=== PATIENT | female | born 1960 | race Caucasian/White ===

== ENCOUNTER 2017-10-22 11:01 | Emergency (ER) | payer MEDICARE, OTHER ==
--- NOTE | 2017-10-22 11:37 | ER Document Report ---
ED Medical Screen (RME) - General Chief Complaint: Congestion Stated Complaint: COUGH CONGESTION Time Seen by Provider: 10/22/17 11:33 Notes: The patient is a 57-year-old female, former smoker (quit 5 years ago), depression, presents with increased cough and congestion over the past 2 days. She is now having some upper chest tightness that is worsening. She denies hemoptysis, fevers, back pain, leg swelling, nausea or vomiting. PE: 91% on RA (not on any home O2, never diagnosed with COPD), mild tachypnea, lungs are clear to auscultation bilaterally. I have greeted and performed a rapid initial assessment of this patient. A comprehensive ED assessment and evaluation of the patient, analysis of test results and completion of the medical decision making process will be conducted by additional ED providers. TRAVEL OUTSIDE OF THE [place] IN LAST 30 DAYS: No - Related Data Allergies/Adverse Reactions: No Known Allergies Allergy (Verified 10/22/17 11:22) Past Medical History - Social History Chew tobacco use (# tins/day): No Frequency of alcohol use: Rare Drug Abuse: None Renal/ Medical History: Denies: Hx Peritoneal Dialysis Psychiatric Medical History: Reports: Hx Depression Past Surgical History: Reports: Hx Orthopedic Surgery - right foot Physical Exam - Vital signs Vitals: Temp Pulse Resp BP Pulse Ox 97.8 F 87 22 H 142/99 H 91 L 10/22/17 11:08 10/22/17 11:08 10/22/17 11:08 10/22/17 11:08 10/22/17 11:08 Course - Vital Signs Vital signs: Temp Pulse Resp BP Pulse Ox 97.8 F 78 22 H 142/99 H 95 10/22/17 11:08 10/22/17 11:30 10/22/17 11:08 10/22/17 11:08 10/22/17 11:30
[2017-10-22 12:04] LABS: ABSOLUTE BASOPHILS # (AUTO) 0.1 10^3/uL (0.0-0.2); ABSOLUTE EOSINOPHILS # (AUTO) 0.7 10^3/uL (0.0-0.6); ABSOLUTE LYMPHOCYTES (AUTO) 2.9 10^3/uL (0.5-4.7); ABSOLUTE MONOCYTES (AUTO) 0.8 10^3/uL (0.1-1.4); ABSOLUTE NEUT (AUTO) 3.8 10^3/uL (1.7-8.2); BASOPHILS % (AUTO) 1.1 % (0-2); EOSINOPHILS % (AUTO) 8.8 % (0-6); HEMOGLOBIN 15.5 g/dL (12.0-15.5); MEAN CORPUSCULAR HEMOGLOBIN 31.1 pg (27.0-33.4); MEAN CORPUSCULAR HGB CONC 34.4 g/dL (32.0-36.0); MEAN CORPUSCULAR VOLUME 90 fl (80-97); MONOCYTES % (AUTO) 9.4 % (3-13); PLATELET COUNT 330 10^3/uL (150-450); RED BLOOD COUNT 4.98 10^6/uL (3.72-5.28); RED CELL DISTRIBUTION WIDTH 12.7 % (11.5-14.0); SEGMENTED NEUTROPHILS % (AUTO) 45.7 % (42-78); TOTAL CELLS COUNTED % (AUTO) 100 %; WHITE BLOOD COUNT 8.4 10^3/uL (4.0-10.5)
--- NOTE | 2017-10-22 12:10 | ER Document Report ---
ED General - General Chief Complaint: Congestion Stated Complaint: COUGH CONGESTION Time Seen by Provider: 10/22/17 11:33 TRAVEL OUTSIDE OF THE [place] IN LAST 30 DAYS: No - HPI Patient complains to provider of: SOB Notes: 57-year-old female lengthy history of smoking quit several years ago presents with 2 day history increasing work of breathing and shortness of breath. Patient endorses increased sputum production. Denies fever chills. Patient says today she started to notice increasing constant chest tightness with deep inspiration. Denies any overt pain with this chest discomfort. Denies diaphoresis nausea, vomiting, diarrhea, dysuria. Patient does not carry the diagnosis of COPD, does not wear chronic oxygen. Initial oxygen saturations 91 % room air. - Related Data Allergies/Adverse Reactions: No Known Allergies Allergy (Verified 10/22/17 11:22) Past Medical History - Social History Smoking Status: Former Smoker Chew tobacco use (# tins/day): No Frequency of alcohol use: Rare Drug Abuse: None Family History: None Patient has suicidal ideation: No Patient has homicidal ideation: No Renal/ Medical History: Denies: Hx Peritoneal Dialysis Psychiatric Medical History: Reports: Hx Depression Past Surgical History: Reports: Hx Orthopedic Surgery - right foot Review of Systems - Review of Systems Notes: REVIEW OF SYSTEMS: CONSTITUTIONAL: -fevers, -chills EENT: -eye pain, -difficulty swallowing, -nasal congestion CARDIOVASCULAR: +chest tightness, -syncope. RESPIRATORY: -cough, + SOB GASTROINTESTINAL: -abdominal pain, -nausea, -vomiting, -diarrhea GENITOURINARY: -dysuria, -hematuria MUSCULOSKELETAL: -back pain, -neck pain SKIN: -rash or skin lesions. HEMATOLOGIC: -easy bruising or bleeding. LYMPHATIC: -swollen, enlarged glands. NEUROLOGICAL: -altered mental status or loss of consciousness, -headache, - neurologic symptoms PSYCHIATRIC: -anxiety, -depression. ALL OTHER SYSTEMS REVIEWED AND NEGATIVE. Physical Exam - Vital signs Vitals: Temp Pulse Resp BP Pulse Ox 97.8 F 87 22 H 142/99 H 91 L 10/22/17 11:08 10/22/17 11:08 10/22/17 11:08 10/22/17 11:08 10/22/17 11:08 - Notes Notes: PHYSICAL EXAMINATION: GENERAL: Well-appearing, well-nourished and in no acute distress. HEAD: Atraumatic, normocephalic. EYES: Pupils equal round and reactive to light, extraocular movements intact, sclera anicteric, conjunctiva are normal. ENT: nares patent, oropharynx clear without exudates. Moist mucous membranes. NECK: Normal range of motion, supple without lymphadenopathy LUNGS: Diffuse rhonchi, no wheezing HEART: Regular rate and rhythm without murmurs ABDOMEN: Soft, nontender, normoactive bowel sounds. No guarding, no rebound. No masses appreciated. EXTREMITIES: Normal range of motion, no pitting or edema. No cyanosis. NEUROLOGICAL: Cranial nerves grossly intact. Normal speech, normal gait. Normal sensory and motor exams. PSYCH: Normal mood, normal affect. SKIN: Warm, Dry, normal turgor, no rashes or lesions noted. Course - Re-evaluation Re-evalutation: 10/22/17 12:18 57-year-old female presents with increased work of breathing, no chest pain no pleuritic component negative hemoptysis or trauma or travel. No history of DVT. Patient has never had a diagnosis of COPD but appears to be a COPD exacerbation. Will evaluate cardiac evaluation. EKG unremarkable at this time. 10/22/17 14:23 Patient's extensive lab workup relatively unremarkable, CAT scan performed shows no focal infiltrate or pulmonary embolus. Patient given multiple breathing treatments and steroids in the emergency department, preserved kidney function also noted. Patient be discharged home with prescription for oral doxycycline and short burst dose of steroids. Follow -up with PCP. return precautions given - Vital Signs Vital signs: Temp Pulse Resp BP Pulse Ox 97.8 F 78 22 H 142/99 H 95 10/22/17 11:08 10/22/17 11:30 10/22/17 11:08 10/22/17 11:08 10/22/17 11:30 - Laboratory Result Diagrams: 10/22/17 11:47 10/22/17 11:47 Laboratory results interpreted by me: 10/22/17 10/22/17 10/22/17 11:47 11:47 11:47 Eosinophils % 8.8 H Absolute Eosinophils 0.7 H D-Dimer 0.61 H Sodium 146.1 H Calcium 10.3 H Total Protein 8.5 H - Diagnostic Test Radiology reviewed: Reports reviewed - EKG Interpretation by Me [place]/QRS: LBBB Additional EKG results interpreted by me: 10/22/17 14:24 Normal sinus rhythm, no ST elevations or depressions, no pathologic T-wave inversions Discharge - Discharge Clinical Impression: Viral syndrome Condition: Stable Disposition: HOME, SELF-CARE Instructions: Viral Syndrome ([facility]) Additional Instructions: See your PCP this week
--- NOTE | 2017-10-22 12:11 | RADIOLOGY REPORT (SQ) ---
EXAM DESCRIPTION: CHEST 2 VIEWS COMPLETED DATE/TIME: 10/22/2017 11:58 am REASON FOR STUDY: cough, hypoxia COMPARISON: None. EXAM PARAMETERS: NUMBER OF VIEWS: two views TECHNIQUE: Digital Frontal and Lateral radiographic views of the chest acquired. RADIATION DOSE: NA LIMITATIONS: none FINDINGS: LUNGS AND PLEURA: No opacities, masses or pneumothorax. No pleural effusion. MEDIASTINUM AND HILAR STRUCTURES: No masses or contour abnormalities. HEART AND VASCULAR STRUCTURES: Heart normal size. No evidence for failure. BONES: No acute findings. HARDWARE: None in the chest. OTHER: No other significant finding. IMPRESSION: NO ACUTE RADIOGRAPHIC FINDING IN THE CHEST. TECHNICAL DOCUMENTATION: JOB ID: [id number] [employer]- All Rights Reserved Reading location - IP/workstation name: [email or web address]
[2017-10-22] MEDS ORDERED: IPRATROPIUM/ALBUTEROL 0.5-2.5 MG/3 ML AMPUL NEB ONE ×3 (12:15)
[2017-10-22] MEDS ORDERED: PREDNISONE 20 MG TABLET PO ONE (12:15)
[2017-10-22 12:30] LABS: ALANINE AMINOTRANSFERASE 25 U/L (9-52); ALBUMIN 4.7 g/dL (3.5-5.0); ALKALINE PHOSPHATASE 73 U/L (38-126); ANION GAP 13 (5-19); ASPARTATE AMINO TRANSFERASE 26 U/L (14-36); BILIRUBIN,DIRECT 0.3 mg/dL (0.0-0.4); BILIRUBIN,TOTAL 0.6 mg/dL (0.2-1.3); BLOOD UREA NITROGEN 14 mg/dL (7-20); CALCIUM 10.3 mg/dL (8.4-10.2); CARBON DIOXIDE 30 mmol/L (22-30); CHLORIDE 103 mmol/L (98-107); CREATINE KINASE 70 U/L (30-135); GLUCOSE 96 mg/dL (75-110); POTASSIUM 4.2 mmol/L (3.6-5.0); SODIUM 146.1 mmol/L (137-145); TOTAL PROTEIN 8.5 g/dL (6.3-8.2)
--- NOTE | 2017-10-22 14:01 | RADIOLOGY REPORT (SQ) ---
EXAM DESCRIPTION: CTA CHEST COMPLETED DATE/TIME: 10/22/2017 1:44 pm REASON FOR STUDY: elevated d-dimer chest pain, shortness of breath COMPARISON: Two-view chest earlier today TECHNIQUE: CT scan of the chest performed using helical scanning technique with dynamic intravenous contrast injection. Images reviewed with lung, soft tissue and bone windows. Reconstructed coronal and sagittal MPR images reviewed. Additional 3 dimensional post-processing performed to develop Maximal Intensity Projection images (MO P). All images stored on PACS. All CT scanners at this facility use dose modulation, iterative reconstruction, and/or weight based d osing when appropriate to reduce radiation dose to as low as reasonably achievable (ALARA). [facility]: Dose Right [facility]: CareDose [facility]: Dose Right [facility]: Teradose 4D [facility]: [employer] CONTRAST TYPE AND DOSE: contrast/concentration: Isovue 370.00 mg/ml; Total Contrast Delivered: 65.0 ml; Total Saline Delivered: 90.0 ml Contrast bolus optimized for the pulmonary arteries. Bolus is diagnostic for the aorta. RENAL FUNCTION: Creatinine 0.82 RADIATION DOSE: CT Rad equipment meets quality standard of care and radiation dose reduction techniq ues were employed. CTDIvol: 14.3 - 19.8 mGy. DLP: 567 mGy-cm. . LIMITATIONS: None. FINDINGS: LUNGS AND PLEURA: No masses, infiltrates, or pneumothorax. No pleural effusions or pleura l calcifications. Mild changes of obstructive lung disease with enlarged airspaces in the upper lobe s bilaterally. AORTA AND GREAT VESSELS: No aneurysm. Contrast bolus not optimized for the aorta. HEART: No pericardial effusion. No significant coronary artery calcifications. PULMONARY ARTERIES: No emboli visualized in the main pulmonary arteries or the segmental branches. HILAR AND MEDIASTINAL STRUCTURES: No identified masses or abnormal nodes. HARDWARE: None in the chest. UPPER ABDOMEN: No significant findings. Limited exam. THYROID AND OTHER SOFT TISSUES: No masses. No adenopathy. BONES: No acute or significant finding. 3D MIPS: Confirm above findings. OTHER: No other significant finding. IMPRESSION: No acute findings. No acute infiltrates. No pulmonary emboli or thoracic aortic dissec tion. COMMENT: Quality ID # [id number]: Final reports with documentation of one or more dose reduction techniques (e.g., Automated exposure control, adjustment of the mA and/or kV according to patient size, use of iterative reconstruction technique) TECHNICAL DOCUMENTATION: JOB ID: [id number] [employer]- All Rights Reserved Reading location - IP/workstation name: [email or web address]
[2017-10-22 14:34] VITALS: BP 124/80
--- NOTE | 2017-10-22 21:48 | EKG REPORT ---
SEVERITY:- NORMAL ECG - SINUS RHYTHM : Confirmed by: Destiny Sousa MD 22-Oct-2017 21:46:26
== END 2017-10-22 15:06 | disposition home or self-care (01) ==
LOC: ER 11:01
DX: B34.9 Viral infection, unspecified (principal); R09.89 Other specified symptoms and signs involving the circulatory and respiratory systems; R06.02 Shortness of breath; Z87.891 Personal history of nicotine dependence
CPT/HCPCS: 93005; 94640 ×2; 99284; 36415; 82550; 85025; 80053; 84484; 85379; 71046; 71275; 93010; A9270 ×2; J7512; J7620

== ENCOUNTER 2018-04-05 18:58 | Emergency (ER) | payer MEDICARE ==
[2018-04-05] MEDS ORDERED: DIPHENHYDRAMINE HCL 25 MG CAPSULE PO ONE (20:27)
[2018-04-05] MEDS ORDERED: PREDNISONE 20 MG TABLET PO ONE (20:27)
[2018-04-05] MEDS ORDERED: IPRATROPIUM/ALBUTEROL 0.5-2.5 MG/3 ML AMPUL NEB ONE (20:27)
--- NOTE | 2018-04-05 21:44 | RADIOLOGY REPORT (SQ) ---
EXAM DESCRIPTION: PA and lateral views of the chest CLINICAL HISTORY:57 years Female, cough, fever Comparison: None FINDINGS: No focal lung consolidation. No pleural effusion. No pneumothorax. Cardiac and mediastinal silhouette is unremarkable. No acute osseous abnormality. Soft tissues are unremarkable. IMPRESSION: No acute findings. No focal lung consolidation.
[2018-04-05] MEDS ORDERED: ALBUTEROL SULFATE HFA (90 MCG/PUFF) 8 GM MDI (1 MDI/ER DISP) IH ONE (22:38)
--- NOTE | 2018-04-05 22:41 | ER Document Report ---
HPI - HPI Time Seen by Provider: 04/05/18 20:00 Pain Level: 4 Notes: Patient is a 57-year-old female who presents to the emergency department with possible allergy symptoms. Patient reports that he drove here today from [place] and are staying with her daughter who has a dog in the home. Patient reports the last time she visited her daughter she had a similar illness that started just after arrival. Patient reports productive cough, nasal congestion, sore throat and redness around her eyes. Patient is also requesting a refill of her Zoloft as she states that she takes this for her depression and she left it in [place]. - CONSTITUTIONAL Constitutional: DENIES: Fever, Chills - RESPIRATORY Respiratory: REPORTS: Coughing - productive white sputumComment Only: Trouble Breathing - c - REPRODUCTIVE Reproductive: DENIES: : Past Medical History - General Information source: Patient - Social History Smoking Status: Current Every Day Smoker Frequency of alcohol use: None Drug Abuse: None Family History: None Patient has suicidal ideation: No Patient has homicidal ideation: No Pulmonary Medical History: Reports: Hx Bronchitis Renal/ Medical History: Denies: Hx Peritoneal Dialysis Psychiatric Medical History: Reports: Hx Depression Past Surgical History: Reports: Hx Orthopedic Surgery - right foot Vertical Provider Document - CONSTITUTIONAL Notes: PHYSICAL EXAMINATION: GENERAL: Well-appearing, well-nourished and in no acute distress. HEAD: Atraumatic, normocephalic. EYES: Pupils equal round extraocular movements intact, conjunctiva are normal. Erythema surrounding both eyes. ENT: Nares patent with clear rhinorrhea noted. Oropharynx clear, no erythema or exudates noted. No tonsillar swelling noted. NECK: Normal range of motion LUNGS: No respiratory distress, lung sounds clear to auscultation bilaterally. Musculoskeletal: Normal range of motion NEUROLOGICAL: Normal speech, normal gait. PSYCH: Normal mood, normal affect. SKIN: Warm, Dry, normal turgor, no rashes or lesions noted. - INFECTION CONTROL TRAVEL OUTSIDE OF THE [place] IN LAST 30 DAYS: No Course - Re-evaluation Re-evalutation: Chest x-ray negative for any acute findings to include infiltrates. Patient reports significant improvement of her symptoms after administration of Benadryl and prednisone. This is likely an exacerbation of patient's allergies accompanied by a viral upper respiratory infection. - Vital Signs Vital signs: Temp Pulse Resp BP Pulse Ox 98.0 F 88 18 134/98 H 92 04/05/18 19:09 04/05/18 19:09 04/05/18 19:09 04/05/18 19:09 04/05/18 19:09 Discharge - Discharge Clinical Impression: Environmental allergies Upper respiratory tract infection Qualifiers: URI type: unspecified URI Qualified Code(s): J06.9 - Acute upper respiratory infection, unspecified Condition: Stable Disposition: HOME, SELF-CARE Additional Instructions: Your chest x-ray was normal today. Your symptoms are most consistent with allergies and upper respiratory tract infection. Please take the medications as prescribed. You should also be taking Benadryl 25-50 mg every 6 hours. Please return to the emergency department if you experience worsening of your shortness of breath or develop a fever. We are happy to reevaluate you at any time. Prescriptions: RX: Prednisone [Deltasone 20 mg Tablet] 3 tab PO DAILY 4 Days #12 tablet Sertraline HCl [Zoloft] 100 mg PO DAILY #30 tablet
[2018-04-05 22:55] VITALS: BP 112/83
== END 2018-04-05 22:55 | disposition home or self-care (01) ==
LOC: ER 18:58
DX: J06.9 Acute upper respiratory infection, unspecified (principal); R09.81 Nasal congestion; T78.49XA Other allergy, initial encounter; F17.200 Nicotine dependence, unspecified, uncomplicated; X58.XXXA Exposure to other specified factors, initial encounter
CPT/HCPCS: 94640; 99283; 71046; A9270 ×3; J3490; J7512; J7620

== ENCOUNTER 2018-10-09 08:38 | Emergency (ER) | payer MEDICARE ==
[2018-10-09 08:46] VITALS: BP 132/94
[2018-10-09] MEDS ORDERED: IPRATROPIUM/ALBUTEROL 0.5-2.5 MG/3 ML AMPUL NEB ONE (09:35)
[2018-10-09] MEDS ORDERED: PREDNISONE 20 MG TABLET PO ONE (09:35)
[2018-10-09] MEDS ORDERED: ALBUTEROL SULFATE HFA (90 MCG/PUFF) 8 GM MDI (1 MDI/ER DISP) IH ONE (09:36)
--- NOTE | 2018-10-09 09:55 | ER Document Report ---
HPI - HPI Time Seen by Provider: 10/09/18 09:17 Pain Level: 5 Notes: Patient is an otherwise healthy 58-year-old female presented to the emergency department chief complaint of nasal congestion and a nonproductive cough that started yesterday. Patient denies any fever, nausea, vomiting or diarrhea, denies sore throat or difficulty breathing or swallowing. Patient has not taken any medications for her symptoms today. Patient does reports that she comes to visit [place] about once every 6 months and every time she comes she gets similar symptoms. Patient does not take any medications for allergies. - CONSTITUTIONAL Constitutional: DENIES: Fever, Chills - EENT EENT: DENIES: Sore Throat, Ear Pain, Eye problems - NEURO Neurology: DENIES: Headache - RESPIRATORY Respiratory: REPORTS: Coughing - non productive - GASTROINTESTINAL Gastrointestinal: DENIES: Abdominal Pain - URINARY Urinary: DENIES: Dysuria, Urgency, Frequency - REPRODUCTIVE Reproductive: DENIES: : Past Medical History - General Information source: Patient - Social History Smoking Status: Never Smoker Chew tobacco use (# tins/day): No Drug Abuse: None Family History: None Patient has suicidal ideation: No Patient has homicidal ideation: No Pulmonary Medical History: Reports: Hx Bronchitis Renal/ Medical History: Denies: Hx Peritoneal Dialysis Psychiatric Medical History: Reports: Hx Depression Past Surgical History: Reports: Hx Orthopedic Surgery - right foot Vertical Provider Document - CONSTITUTIONAL Notes: PHYSICAL EXAMINATION: GENERAL: Well-appearing, well-nourished and in no acute distress. HEAD: Atraumatic, normocephalic. EYES: Pupils equal round extraocular movements intact, conjunctiva are normal. ENT: Nares patent, oropharynx clear without erythema or exudates, no tonsillar swelling noted, uvula midline. NECK: Normal range of motion, no cervical lymphadenopathy noted. LUNGS: No respiratory distress, Bilateral expiratory wheezes noted, mildly increased work of breathing, bronchospasm with deep breaths. Musculoskeletal: Normal range of motion NEUROLOGICAL: Normal speech, normal gait. PSYCH: Normal mood, normal affect. SKIN: Warm, Dry, normal turgor, no rashes or lesions noted. - INFECTION CONTROL TRAVEL OUTSIDE OF THE [place] IN LAST 30 DAYS: No Course - Re-evaluation Re-evalutation: Patient does have bilateral expiratory wheezes noted. She will be given a treatment of DuoNeb here in the emergency department as well as 60 mg of prednisone. As well as patient's wheezes improved patient will be discharged home on Flonase, prednisone and an albuterol inhaler. Patient will be encouraged to start taking an wkns-ihp-pksqigk allergy medicine such as Zyrtec or cetirizine. - Vital Signs Vital signs: Temp Pulse Resp BP Pulse Ox 97.9 F 84 16 132/94 H 92 10/09/18 08:45 10/09/18 08:45 10/09/18 08:45 10/09/18 08:45 10/09/18 08:45 Discharge - Discharge Clinical Impression: Viral upper respiratory illness Condition: Stable Disposition: HOME, SELF-CARE Additional Instructions: Your symptoms are most consistent with a viral upper respiratory illness most likely being caused by an allergen. Please take all medications as prescribed. Please increase her fluid intake. You may also want to consider taking an axoi-ksg-jbzdxeh allergy medication like Zyrtec or Valerie-D. These can be purchased [id number]. Please return to the emergency department for any new or worsening symptoms to include difficulty breathing, shortness of breath, development of fever that is not controlled by Tylenol or ibuprofen or any other symptom that is concerning to you. Prescriptions: Fluticasone Propionate [Flonase Nasal [place] 50 Mcg/[place] 16 gm] 1 spray NASL Q12 #1 inhaler Prednisone [Deltasone 20 mg Tablet] 3 tab PO DAILY 4 Days #12 tablet
== END 2018-10-09 10:25 | disposition home or self-care (01) ==
LOC: ER 08:38
DX: J06.9 Acute upper respiratory infection, unspecified (principal); R09.81 Nasal congestion; R06.2 Wheezing
CPT/HCPCS: 94640; 99283; A9270 ×2; J3490; J7512; J7620

== ENCOUNTER 2019-02-21 09:46 | Emergency (ER) | payer MEDICARE, MEDICAID ==
[2019-02-21] MEDS ORDERED: ACETAMINOPHEN 325 MG TABLET PO ONE (10:00)
--- NOTE | 2019-02-21 10:01 | ER Document Report ---
ED Medical Screen (RME) - General Chief Complaint: Wrist Injury Stated Complaint: LEFT WRIST INJURY Time Seen by Provider: 02/21/19 09:58 Mode of Arrival: Ambulatory Information source: Patient Notes: Patient states she picked her granddaughter up yesterday and felt a pop in her wrist. Patient states since then she has had left wrist pain swelling and redness to the wrist. Patient denies any history of gout. I have greeted and performed a rapid initial assessment of this patient. A comprehensive ED assessment and evaluation of the patient, analysis of test results and completion of the medical decision making process will be conducted by additional ED providers. TRAVEL OUTSIDE OF THE [place] IN LAST 30 DAYS: No - Related Data Allergies/Adverse Reactions: No Known Allergies Allergy (Verified 02/21/19 09:52) Home Medications: Zoloft 100mg QDay Past Medical History - Social History Chew tobacco use (# tins/day): No Frequency of alcohol use: None Drug Abuse: None Pulmonary Medical History: Reports: Hx Bronchitis Renal/ Medical History: Denies: Hx Peritoneal Dialysis Psychiatric Medical History: Reports: Hx Depression Past Surgical History: Reports: Hx Orthopedic Surgery - right foot Physical Exam - Vital signs Vitals: Temp Pulse Resp BP Pulse Ox 98.4 F 77 16 115/80 96 02/21/19 09:50 02/21/19 09:50 02/21/19 09:50 02/21/19 09:50 02/21/19 09:50 - Extremities General upper extremity: Tender - Left wrist tenderness, dorsal wrist erythematous warm with mild edema Course - Vital Signs Vital signs: Temp Pulse Resp BP Pulse Ox 98.4 F 77 16 115/80 96 02/21/19 09:50 02/21/19 09:50 02/21/19 09:50 02/21/19 09:50 02/21/19 09:50
--- NOTE | 2019-02-21 10:19 | RADIOLOGY REPORT (SQ) ---
EXAM DESCRIPTION: WRIST LEFT 3 VIEWS COMPLETED DATE/TIME: 02/21/2019 10:09 am REASON FOR STUDY: L wrst pain after picking child up, wrist red/warm COMPARISON: None. NUMBER OF VIEWS: Three views. TECHNIQUE: AP, lateral, and oblique radiographic images acquired of the left wrist. LIMITATIONS: None. FINDINGS: MINERALIZATION: Normal. BONES: Ulnar styloid avulsion. No additional fractures. SOFT TISSUES: No soft tissue swelling. No foreign body. OTHER: No other significant finding. IMPRESSION: Ulnar styloid avulsion. TECHNICAL DOCUMENTATION: JOB ID: [id number] [employer]- All Rights Reserved Reading location - IP/workstation name: [email or web address]
--- NOTE | 2019-02-21 10:30 | ER Document Report ---
HPI - HPI Patient complains to provider of: left wrist pain Time Seen by Provider: 02/21/19 09:58 Onset: Yesterday Onset/Duration: Sudden Quality of pain: Achy Severity: Severe Pain Level: 5 Context: This 58-year-old female presents emergency department with complaints of left wrist pain. Reports she picked up her grandchild yesterday and felt a pop. She reports pain since that time. Denies past medical history of injury to the wrist. Denies other symptoms such as fever vomiting diarrhea. Patient just moved here from [place] has not established herself with a primary care provider. Associated Symptoms: None Exacerbated by: Movement Relieved by: Denies Similar symptoms previously: No Recently seen / treated by doctor: No - REPRODUCTIVE Reproductive: DENIES: : Past Medical History - General Information source: Patient - Social History Smoking Status: Former Smoker Cigarette use (# per day): No Chew tobacco use (# tins/day): No Frequency of alcohol use: None Drug Abuse: None Family History: None Patient has suicidal ideation: No Patient has homicidal ideation: No Pulmonary Medical History: Reports: Hx Bronchitis Endocrine Medical History: Denies: Hx Diabetes Mellitus Type 1, Hx Diabetes Mellitus Type 2 Renal/ Medical History: Denies: Hx Peritoneal Dialysis Psychiatric Medical History: Reports: Hx Depression, Other - Mood swings Past Surgical History: Reports: Hx Orthopedic Surgery - right foot Vertical Provider Document - CONSTITUTIONAL Agree With Documented VS: Yes Exam Limitations: No Limitations General Appearance: WD/WN, No Apparent Distress - INFECTION CONTROL TRAVEL OUTSIDE OF THE [place] IN LAST 30 DAYS: No - HEENT HEENT: Atraumatic, Normocephalic - NECK Neck: Supple - RESPIRATORY Respiratory: No Respiratory Distress - CARDIOVASCULAR Cardiovascular: Regular Rate - MUSCULOSKELETAL/EXTREMETIES Musculoskeletal/Extremeties: MAEW, FROM, Tender - Left lateral wrist pain. Some erythema noted no obvious swelling no obvious deformity good radial pulse cap refill less than 2 seconds. Good daycare teacher. Slight erythema with warmth to the volar aspect of her left wrist. Patient denies using any heating pad reports she is been rubbing her wrist. - NEURO Level of Consciousness: Awake, Alert, Appropriate Motor/Sensory: No Motor Deficit - DERM Integumentary: Warm, Dry Adult Front & Back Diagram: 1 - c/o pain, +erythema Course - Re-evaluation Re-evalutation: 02/21/19 10:51 58-year-old female presents with left wrist pain after picking up her grandchild yesterday. Reports she heard a pop. No obvious deformity noted. Ulnar styloid distal avulsion fracture noted on x-ray. Some erythema with warmth noted to the volar aspect of left wrist. She denies history of diabetes. Reports she has not had a heating pad on the wrist. Reports she is been rubbing the wrist. Patient was instructed on this given a print of her x-ray. She was instructed on plan of care to include splint follow-up with orthopedics. She was instructed to monitor her wrist for increasing pain redness swelling warmth and to return immediately to the emergency department for worsening symptoms.. She verbalized understanding to all instructions Dictation of this chart was performed using voice recognition software; therefore, there may be some unintended grammatical errors. - Vital Signs Vital signs: Temp Pulse Resp BP Pulse Ox 98.4 F 77 16 115/80 96 02/21/19 09:50 02/21/19 09:50 02/21/19 09:50 02/21/19 09:50 02/21/19 09:50 - Diagnostic Test Radiology reviewed: Image reviewed, Reports reviewed Procedures - Immobilization Left Wrist Pre-Proc Neuro Vasc Exam: Normal Immobilizer type: Ulnar Performed by: PCT Post-Proc Neuro Vasc Exam: Unchanged from pre-exam Alignment checked and good: Yes Discharge - Discharge Clinical Impression: Wrist pain Qualifiers: Laterality: left Qualified Code(s): M25.532 - Pain in left wrist Fracture of ulnar styloid Qualifiers: Encounter type: initial encounter Fracture type: closed Fracture alignment: nondisplaced Laterality: left Qualified Code(s): S52.615A - Nondisplaced fracture of left ulna styloid process, initial encounter for closed fracture Condition: Stable Disposition: HOME, SELF-CARE Instructions: Avulsion Fracture (OM), Family Physicians / Practices, Use of [id number]-[id number] Ibuprofen (OM), Ice & Elevation (OM), Splint Pending Casting (OM) Additional Instructions: *You have been evaluated for left wrist pain Your x-ray showed a ulna styloid avulsion fracture *Rest/Ice/Elevate your wrist *Maintain the splint *Follow up with orthopedics within one week for evaluation and cast placement as indicated *Take ibuprofen as indicated *Return to ED for worsening condition, changes, needs, increased pain, swelling, concerns Referrals: JESSICA DENIS JR, DO [ACTIVE PROVISIONAL STAFF] - Follow up as needed [facility] [Provider Group] - Follow up as needed ART CARR MD [ACTIVE PROVISIONAL STAFF] - Follow up as needed
[2019-02-21 11:05] VITALS: BP 117/78
== END 2019-02-21 11:01 | disposition home or self-care (01) ==
LOC: ER 09:46
DX: S52.615A Nondisplaced fracture of left ulna styloid process, initial encounter for closed fracture (principal); M25.532 Pain in left wrist; X50.9XXA Other and unspecified overexertion or strenuous movements or postures, initial encounter; Z87.891 Personal history of nicotine dependence
CPT/HCPCS: 73110; 29125; A9270; 99283

== ENCOUNTER 2019-09-21 05:19 | Day surgery (SDC) | payer MEDICARE, MEDICAID ==
[2019-09-16 09:28] LABS: HEMATOCRIT 42.1 % (36.0-47.0); HEMOGLOBIN 14.3 g/dL (12.0-15.5); MEAN CORPUSCULAR HEMOGLOBIN 30.6 pg (27.0-33.4); MEAN CORPUSCULAR HGB CONC 33.9 g/dL (32.0-36.0); MEAN CORPUSCULAR VOLUME 90 fl (80-97); PLATELET COUNT 274 10^3/uL (150-450); RED BLOOD COUNT 4.66 10^6/uL (3.72-5.28); RED CELL DISTRIBUTION WIDTH 13.1 % (11.5-14.0)
[~2019-09-21 05:19] MED LIST: ACETAMINOPHEN 325 MG TABLET PO PRN; LIDOCAINE 0.5% INJ-PF (5 MG/ML) 50 ML SDV SUBCUT PRN; RINGERS SOLUTION,LACTATED 1,000 ML IV PRN
[2019-09-21] MEDS ORDERED: LIDOCAINE 0.5% INJ-PF (5 MG/ML) 50 ML SDV ONE (06:29)
[2019-09-21] MEDS ORDERED: PROPOFOL INJ 200 MG/20 ML VIAL IV ONE (06:30)
[2019-09-21] MEDS ORDERED: MEPERIDINE HCL/PF INJ 25 MG/1 ML DISP.SYRIN IV PRN (07:47)
[2019-09-21] MEDS ORDERED: MORPHINE SULFATE 10 MG/ML INJ IV PRN (07:47)
[2019-09-21] MEDS ORDERED: DIPHENHYDRAMINE HCL 50 MG/ML VIAL IV PRN (07:47)
[2019-09-21] MEDS ORDERED: FENTANYL CITRATE INJ/PF 100 MCG/2 ML AMPUL IV PRN ×3 (07:47)
[2019-09-21] MEDS ORDERED: PROMETHAZINE HCL INJ 25 MG/1 ML VIAL IV PRN ×2 (07:47)
[2019-09-21] MEDS ORDERED: ONDANSETRON HCL INJ/PF 4 MG/2 ML SDV IV PRN (08:12)
--- NOTE | 2019-09-21 08:34 | Operative Report ---
Nonrecallable Operative Report DATE OF SURGERY: 09/21/19 PREOPERATIVE DIAGNOSIS: Screening colonoscopy POSTOPERATIVE DIAGNOSIS: Screening colonoscopy OPERATION: Screening colonoscopy SURGEON: EULA CARRASCO ANESTHESIA: LMAC TISSUE REMOVED OR ALTERED: Cold biopsy removal COMPLICATIONS: None ESTIMATED BLOOD LOSS: 0 INTRAOPERATIVE FINDINGS: Cecal sessile polyp PROCEDURE: Patient was brought the operating awake alert stable condition placed on the operative table and given IV sedation she was then placed in left lateral decubitus position. After proper timeout and site verification the procedure commenced. The Olympus colonoscope was passed into the rectum and easily traversed the rectum and sigmoid colon to the descending colon we progressed and advance the scope past the splenic flexure to the transverse colon and the hepatic flexure and then finally the cecum visualization of the cecum revealed a sessile polyp that was smooth and was cold biopsy removed. Sent for pathology. We slowly then withdrew the scope the ascending colon was examined it appeared to be normal bowel prep was excellent hepatic flexure was visualized and it appeared to be normal without any evidence of mucosal abnormalities as was the transverse colon and splenic flexure we then traversed the descending colon slowly examining all the jung with keeping the lumen in the center of the scope and there was no evidence of any polyps or mucosal abnormalities in the rectum was also visualized and appeared to be normal scope with withdrawn. Impression sessile polyp in the cecum cold biopsy removed. Patient will need a follow-up in surgical clinic for pathology results and otherwise needs a colonoscopy in 3 years.
--- NOTE | 2019-09-21 08:35 | Discharge Summary ---
Discharge Summary (SDC) - Discharge Final Diagnosis: Screening colonoscopy Date of Surgery: 09/21/19 Discharge Date: 09/21/19 Condition: Good Forms: ASU Anesthesia D/C Instruction, Discharge POC-Surgical Service Treatment or Instructions: DIET TOLERATED ACTIVITY TOLERATED TAKE YOUR MEDICATIONS DIRECTED FOLLOW UP SCHEDULED IS MAY TAKE SEVERAL DAYS FOR YOUR BOWEL MOVEMENTS TO GET BACK TO NORMAL Referrals: EULA CARRASCO MD [ACTIVE STAFF] - Discharge Diet: As Tolerated Discharge Activity: Activity As Tolerated - Follow-up in surgical clinic with me in 2 to 3 weeks Report the Following to Your Physician Immediately: Increase in Pain
[2019-09-21 09:06] VITALS: BP 136/96
== END 2019-09-21 08:55 | disposition home or self-care (01) ==
LOC: OROUT 05:19
PROVIDERS: ATTEND Surgery
DX: Z12.11 Encounter for screening for malignant neoplasm of colon (principal); D12.0 Benign neoplasm of cecum; F32.9 Major depressive disorder, single episode, unspecified; Z79.899 Other long term (current) drug therapy; Z87.891 Personal history of nicotine dependence; Z03.818 Encounter for observation for suspected exposure to other biological agents ruled out
CPT/HCPCS: 45380; 36415; 85027; 88305 ×2; 00811; U0003; J3490; J2704; C9803; 811; 87635